=== PATIENT | male | born 1960 | race African-American/Black ===

== ENCOUNTER → 2016-09-23 | Day surgery (SDC) | payer OTHER ==
[~2016-09-23] VITALS: Ht 170.2 cm; Wt 121.6 kg
[~2016-09-23] MED LIST: ACEON PO; ACTOPLUS MET 11 EACH PO; JANUVIA100 M1 PO; LIPITOR40 M1 PO; NEURONTIN300 M1 PO
--- NOTE | 2016-09-23 13:17 | Operative Report ---
Operative/Inv Procedure Report Surgery Date: 09/23/16 Name of Procedure: Arthroscopic right partial medial meniscectomy Pre-Operative Diagnosis: #1 right knee medial meniscal tear degenerative type #2 osteoarthritis right knee Post-Operative Diagnosis: Same Estimated Blood Loss: scant Surgeon/Gate Services Supervisor: ERIC TIPTON,NATHANAEL Anesthesia: laryngeal mask airway Implants: None Specimens: None Tourniquet: None used Complications: None Condition: Stable Operative Indication: Patient is a 55-year-old man developed right medial knee pain. Despite conservative measures he had increasing symptoms that interfere with normal activities. Further evaluation revealed a degenerative type complex medial meniscal tear as well as degenerative changes. Due to ongoing symptoms and lack of improvement, he wished to proceed with arthroscopic management of the problem. Risks, benefits and expectations of surgical and further nonsurgical options were discussed including but not limited to persistent knee pain, need for subsequent surgery, infection, anesthesia risks, advancement of osteoarthritis, DVT. Patient wished to proceed with arthroscopic management Operative/Procedure Note Note: Patient was brought to the operating room and transferred to the operating table. Once under appropriate anesthesia the right lower extremity was prepped and draped in standard fashion. Preoperative IV antibiotics were given prophylactically. A standard lateral infrapatellar portal site was established. Scope was inserted patellofemoral compartment was visualized. There is some mild to moderate degenerative changes of the articular cartilage. No significant loose frayed cartilage. Visualized trochlear surface which appeared to be intact as well was some grade 2 changes. I entered the medial compartment the medial meniscus found to be intact in its anterior horn and mid body but there was a complex degenerative type medial meniscal tear the junction between the posterior horn and the mid body. I established a medial infrapatellar portal site and was able to use a straight biter followed by shaver to complete the partial medial meniscectomy. 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 I used the shaver to smooth over the frayed articular edges femoral condyle. I then entered the notch the ACL was found to be intact by direct visualization and direct probing. I placed leg into a figure 4 position and was able to visualize and probe the lateral meniscus which is found to be intact. Some mild grade 1-2 softening of the articular cartilage in the lateral compartment. I entered the lateral gutter no evidence of loose bodies. I went up to the patellofemoral compartment and copiously irrigated the suprapatellar pouch. Mild debridement of some hypertrophied synovial tissue. After all fluid and instruments removed. I closed the portal sites with interrupted nylon sutures. Appropriate dressings were applied and patient was awakened and taken the recovery room in good condition. Discharge Disposition: PACU
== END ==
LOC: STS 09-14 04:05
DX: M23.203 Derangement of unspecified medial meniscus due to old tear or injury, right knee (principal); M17.11 Unilateral primary osteoarthritis, right knee; E11.9 Type 2 diabetes mellitus without complications; I10 Essential (primary) hypertension; E03.9 Hypothyroidism, unspecified
CPT/HCPCS: J0131; J0690; J2250; J2405; J3370; J7040